=== PATIENT | female | born 1960 | race African-American/Black ===

== ENCOUNTER 2017-03-05 14:39 | Emergency (ER) | payer SELFPAY ==
[~2017-03-05] VITALS: Ht 157.5 cm; Wt 103.0 kg
[~2017-03-05 14:39] MED LIST: DIVA-18 PO; HYDR25TA PO
[2017-03-05] MEDS ORDERED: AMLO10TA80 PO (15:22)
[2017-03-05] MEDS ORDERED: BENA20TA3 PO (15:22)
[2017-03-05 23:56] LABS: CHLORIDE 101 mEq/L (98-107)
[2017-03-06 00:02] LABS: CARBON DIOXIDE 31 mEq/L (21-32)
[2017-03-06 05:05] VITALS: BP 163/85
== END 2017-03-06 05:05 | disposition home or self-care (01) ==
LOC: ER 15:25
DX: I10 Essential (primary) hypertension (principal); F17.200 Nicotine dependence, unspecified, uncomplicated
CPT/HCPCS: 36415; 80048; 93005; 99285; Z7610